=== PATIENT | female | born 1960 | race Caucasian/White ===

== ENCOUNTER 2016-07-01 11:44 | Emergency (ER) | payer OTHER ==
[~2016-07-01] VITALS: Ht 162.6 cm; Wt 83.0 kg
[~2016-07-01 11:44] MED LIST: DEPA250T2 PO; FIORIC PO; FLUO20TA20 PO; FLUO40CA PO; LORA-392 PO; OMEP20CA5 PO; TRAM50TA PO
[2016-07-01 11:46] VITALS: BP 147/79; PULSE 105; RESP 17; TEMP 98.2; O2SAT 100
[2016-07-01] MEDS ORDERED: ONDANSETRON HCL 4 MG/2 ML VIAL IVP ONE (12:00)
[2016-07-01] MEDS ORDERED: SODIUM CHLORIDE 0.9% FLUSH 10 ML FLUSH IV FLUSH PRN (12:00)
[2016-07-01] MEDS ORDERED: SODIUM CHLOR 0.9% 1000 ML INJ 1,000 ML IV SCH (12:00)
[2016-07-01] MEDS ORDERED: MORPHINE SULFATE 4 MG/ML INJ IV PUSH ONE ×2 (12:00→15:15)
[2016-07-01 12:05] VITALS: BP 133/80; PULSE 88; RESP 18; O2SAT 99
--- NOTE | 2016-07-01 12:06 | PD ---
HPI Chief Complaint: Flank/Kidney Pain Time Seen by Provider: 11:52 Travel History International Travel<30 days: No Contact w/Intl Traveler<30days: No Traveled to known affect area: No History of Present Illness HPI The patient is a 55-year-old female who presents emergency department for right flank and right low back pain. The patient fell approximately 2 weeks ago after she tripped over her garden hose, falling backwards, landing on the lawn, and landing on her buttocks. Patient complains of pain located mid aspect of her low back that radiates into the left groin, left flank, down the left leg. The pain is worse with movement, but still present at rest. The intensity is intermittent, worse with movement, slightly alleviated at rest, and described as "sharp". The patient denies any dysuria, frequency, urgency, or hematuria. She does know she is currently perimenopausal, is had some intermittent spotting over the last week. The patient denies any associated nausea, vomiting, diarrhea, or change in bowel habits. She denies any urinary or fecal incontinence. The patient called her physician's office earlier today , Dr. Pedraza, who referred her to the emergency department. PFSH Past Medical History Arthritis: Yes (LOW BACK KNEES HANDS) Depression: Yes Cardiovascular Problems: No Diminished Hearing: No Gastrointestinal Disorders: Yes Genitourinary: No Musculoskeletal: Yes Neurologic: Yes Respiratory: Yes Migraines: Yes ?: Not Menopausal: Yes Tubal Ligation: Yes Past Surgical History Section: Yes (3) Gynecologic Surgery: Yes (C SECTION X 3) Tonsillectomy: Yes Other Surgery: Yes (LUMPECTOMY LEFT BREAST) Social History Alcohol Use: Yes (occ) Tobacco Use: Yes (lightly) Substance Use: No Allergies-Medications (Allergen,Severity, Reaction): Coded Allergies: No Known Allergies (Unverified , 07/01/16) Reported Meds & Prescriptions Reported Meds & Active Scripts Active Tramadol (Tramadol HCl) 50 Mg Tab 50 Mg PO Q6H PRN Prilosec 20 mg (Omeprazole) 20 Mg Capcr 20 Mg PO DAILY Ativan (Lorazepam) 0.5 Mg Tab 0.5 Mg PO Q6H Fluoxetine Hcl (Fluoxetine HCl) 20MG Cap 20 Mg PO DAILY Fluoxetine (Fluoxetine HCl) 40 Mg Cap 40 Mg PO DAILY Fioricet Tab (Acetaminophen/Butalbital/Caffeine) 1 Tab Tab 1 Tab PO Q8H PRN Depakote 250 mg (Divalproex Sodium) 250 Mg Tab 1 Tab PO DAILY Reported Omeprazole 20 Mg Tab 20 Mg PO DAILY Effexor (Venlafaxine HCl) 75 Mg Tab 75 Mg PO DAILY Review of Systems Except as stated in HPI: all other systems reviewed are Neg General / Constitutional: No: Fever Cardiovascular: No: Chest Pain or Discomfort Respiratory: No: Shortness of Breath Gastrointestinal: No: Nausea, Vomiting, Abdominal Pain Genitourinary: Positive: Vaginal Bleeding (spotting), No: Dysuria, Hematuria, Incontinence Musculoskeletal: Positive: Pain Neurologic: No: Paresthesia, Sensory Disturbance Physical Exam Narrative GENERAL: Awake, alert, pleasant 55-year-old female who appears her stated age and is in no acute respiratory distress. SKIN: Focused skin assessment warm/dry. HEAD: Atraumatic. Normocephalic. EYES: Pupils equal and round. No scleral icterus. No injection or drainage. ENT: No nasal bleeding or discharge. Upper dentures in place. NECK: Trachea midline. No JVD. CARDIOVASCULAR: Regular rate and rhythm. No murmur appreciated. RESPIRATORY: No accessory muscle use. Clear to auscultation. Breath sounds equal bilaterally. GASTROINTESTINAL: Abdomen soft, mild tenderness left upper quadrant and left flank. No visible ecchymosis. Minimal tenderness left lower quadrant. Back: No midline tenderness. Tenderness of the left sacroiliac in the left paravertebral muscles. MUSCULOSKELETAL: No obvious deformities. No clubbing. No cyanosis. No edema. Full range of motion of lower extremities. NEUROLOGICAL: Awake and alert. No obvious cranial nerve deficits. Motor grossly within normal limits. Normal speech. Nonfocal. Oriented 4. Follows commands without difficulty. PSYCHIATRIC: Appropriate mood and affect; insight and judgment normal. Data Data Last Documented VS Vital Signs Date Time Temp Pulse Resp B/P Pulse Ox O2 Delivery O2 Flow Rate FiO2 07/01/16 12:48 18 07/01/16 12:05 88 133/80 99 Room Air 07/01/16 11:46 98.2 Orders Complete Blood Count With Diff (07/01/16 12:00) Comprehensive Metabolic Panel (07/01/16 12:00) Lipase (07/01/16 12:00) Lactic Acid (07/01/16 12:00) Urinalysis - C+S If Indicated (07/01/16 12:00) Ct Abd/Pel W Iv Contrast(Rout) (07/01/16 12:00) Iv Access Insert/Monitor (07/01/16 12:00) Ecg Monitoring (07/01/16 12:00) Oximetry (07/01/16 12:00) Morphine Inj (Morphine Inj) (07/01/16 12:00) Ondansetron Inj (Zofran Inj) (07/01/16 12:00) Sodium Chlor 0.9% 1000 Ml Inj (Ns 1000 M (07/01/16 12:00) Sodium Chloride 0.9% Flush (Ns Flush) (07/01/16 12:00) Iohexol 350 Inj (Omnipaque 350 Inj) (07/01/16 14:38) Labs Laboratory Tests Test 07/01/16 07/01/16 12:05 12:10 Urine Color LIGHT-YELLOW Urine Turbidity CLEAR Urine pH 7.0 Urine Specific Truman 1.006 Urine Protein NEG mg/dL Urine Glucose (UA) NEG mg/dL Urine Ketones NEG mg/dL Urine Occult Blood NEG Urine Nitrite NEG Urine Bilirubin NEG Urine Urobilinogen LESS THAN 2.0 MG/DL Urine Leukocyte Esterase NEG Urine RBC LESS THAN 1 /hpf Urine WBC LESS THAN 1 /hpf Urine Squamous Epithelial 1 /hpf Cells Microscopic Urinalysis Comment CULT NOT INDICATED White Blood Count 7.2 TH/MM3 Red Blood Count 4.31 MIL/MM3 Hemoglobin 13.4 GM/DL Hematocrit 40.6 % Mean Corpuscular Volume 94.1 FL Mean Corpuscular Hemoglobin 31.0 PG Mean Corpuscular Hemoglobin 32.9 % Concent Red Cell Distribution Width 13.4 % Platelet Count 211 TH/MM3 Mean Platelet Volume 8.1 FL Neutrophils (%) (Auto) 69.7 % Lymphocytes (%) (Auto) 18.4 % Monocytes (%) (Auto) 7.6 % Eosinophils (%) (Auto) 3.7 % Basophils (%) (Auto) 0.6 % Neutrophils # (Auto) 5.0 TH/MM3 Lymphocytes # (Auto) 1.3 TH/MM3 Monocytes # (Auto) 0.5 TH/MM3 Eosinophils # (Auto) 0.3 TH/MM3 Basophils # (Auto) 0.0 TH/MM3 CBC Comment DIFF FINAL Differential Comment Sodium Level 137 MEQ/L Potassium Level 4.7 MEQ/L Chloride Level 103 MEQ/L Carbon Dioxide Level 29.2 MEQ/L Anion Gap 5 MEQ/L Blood Urea Nitrogen 10 MG/DL Creatinine 0.77 MG/DL Estimat Glomerular Filtration 78 ML/MIN Rate Random Glucose 101 MG/DL Lactic Acid Level 1.5 mmol/L Calcium Level 8.9 MG/DL Total Bilirubin 0.4 MG/DL Aspartate Amino Transf 35 U/L (AST/SGOT) Alanine Aminotransferase 20 U/L (ALT/SGPT) Alkaline Phosphatase 90 U/L Total Protein 7.3 GM/DL Albumin 4.0 GM/DL Lipase 170 U/L [facility] Medical Decision Making Medical Screen Exam Complete: Yes Emergency Medical Condition: Yes Medical Record Reviewed: Yes Interpretation(s) CT the abdomen and pelvis reveals hepatic cyst. There is no evidence for acute medical injury. 2.8 cm low density splenic mass probably cystic that appears chronic. Laboratory Tests Test 07/01/16 07/01/16 12:05 12:10 Urine Color LIGHT-YELLOW Urine Turbidity CLEAR Urine pH 7.0 Urine Specific Truman 1.006 Urine Protein NEG mg/dL Urine Glucose (UA) NEG mg/dL Urine Ketones NEG mg/dL Urine Occult Blood NEG Urine Nitrite NEG Urine Bilirubin NEG Urine Urobilinogen LESS THAN 2.0 MG/DL Urine Leukocyte Esterase NEG Urine RBC LESS THAN 1 /hpf Urine WBC LESS THAN 1 /hpf Urine Squamous Epithelial 1 /hpf Cells Microscopic Urinalysis Comment CULT NOT INDICATED White Blood Count 7.2 TH/MM3 Red Blood Count 4.31 MIL/MM3 Hemoglobin 13.4 GM/DL Hematocrit 40.6 % Mean Corpuscular Volume 94.1 FL Mean Corpuscular Hemoglobin 31.0 PG Mean Corpuscular Hemoglobin 32.9 % Concent Red Cell Distribution Width 13.4 % Platelet Count 211 TH/MM3 Mean Platelet Volume 8.1 FL Neutrophils (%) (Auto) 69.7 % Lymphocytes (%) (Auto) 18.4 % Monocytes (%) (Auto) 7.6 % Eosinophils (%) (Auto) 3.7 % Basophils (%) (Auto) 0.6 % Neutrophils # (Auto) 5.0 TH/MM3 Lymphocytes # (Auto) 1.3 TH/MM3 Monocytes # (Auto) 0.5 TH/MM3 Eosinophils # (Auto) 0.3 TH/MM3 Basophils # (Auto) 0.0 TH/MM3 CBC Comment DIFF FINAL Differential Comment Sodium Level 137 MEQ/L Potassium Level 4.7 MEQ/L Chloride Level 103 MEQ/L Carbon Dioxide Level 29.2 MEQ/L Anion Gap 5 MEQ/L Blood Urea Nitrogen 10 MG/DL Creatinine 0.77 MG/DL Estimat Glomerular Filtration 78 ML/MIN Rate Random Glucose 101 MG/DL Lactic Acid Level 1.5 mmol/L Calcium Level 8.9 MG/DL Total Bilirubin 0.4 MG/DL Aspartate Amino Transf 35 U/L (AST/SGOT) Alanine Aminotransferase 20 U/L (ALT/SGPT) Alkaline Phosphatase 90 U/L Total Protein 7.3 GM/DL Albumin 4.0 GM/DL Lipase 170 U/L Differential Diagnosis Differential diagnosis includes back strain, splenic hematoma, intra-abdominal injury, nephrolithiasis, pyelonephritis, UTI, sciatica, back pain with radiculopathy. Narrative Course IV was established, labs are drawn and sent, and the patient was placed on cardiac telemetry monitoring and continuous pulse oximetry monitoring. The patient was administered morphine, Zofran, and IV fluids. CT of the abdomen and pelvis with IV contrast was ordered to evaluate for possible intra- abdominal injury and/or splenic hematoma. UA was sent to lab. Labs are unremarkable. UA is negative for hematuria. Creatinine and hemoglobin are normal. CT of the abdomen and pelvis reveals a hepatic and splenic cyst, no acute findings. The patient was reevaluated at 3 PM, still has moderate pain, therefore, was administered another dose of pain medications. The patient will be discharged home a copy of her CT results and lab results, she is advised to follow-up with her primary physician. Diagnosis Primary Impression: Back pain Qualified Code: M54.42 - Acute left-sided low back pain with left-sided sciatica Additional Impression: Flank pain Patient Instructions: General Instructions Additional Instructions: Medications as directed. Follow-up with your primary physician. Please provide the patient a copy of her CT results and lab results at discharge. Return if symptoms worsen or progress. Med/Other Pt SpecificInfo: Prescription(s) given Scripts Hydrocodone-Acetaminophen ([place])5-325 mg Tab1 Tab PO Q6H PRN (PAIN) #12 TAB Ref 0 Prov:Anirudh Stallings MD 07/01/16 Orphenadrine ER 12 HR (Orphenadrine CR)100 Mg [id number] Mg PO Q12HR #20 TAB Ref 0 Prov:Anirudh Stallings MD 07/01/16 Ibuprofen 400 Mg [id number] Mg PO Q6H PRN (PAIN SCALE 1 TO 10) #20 TAB Ref 0 Prov:Anirudh Stallings MD 07/01/16 Disposition: 01 DISCHARGE HOME Condition: Stable Anirudh Stallings MD July 01, 2016 12:05
[2016-07-01] MEDS ORDERED: OMEP20TA PO (12:10)
[2016-07-01] MEDS ORDERED: VENL75TA PO (12:10)
[2016-07-01 12:45] LABS: BASOPHIL % 0.6 % (0.0-2.0); EOSINOPHIL # 0.3 TH/MM3 (0-0.4); EOSINOPHIL % 3.7 % (0.0-4.0); HEMATOCRIT 40.6 % (35.0-46.0); HEMO FLAGS DIFF FINAL; LYMPH % 18.4 % (9.0-44.0); LYMPHOCYTE # 1.3 TH/MM3 (1.0-4.8); MEAN CELL VOLUME 94.1 FL (80.0-100.0); MEAN CORPUSCULAR HGB CONC 32.9 % (32.0-36.0); MONO % 7.6 % (0.0-8.0); NEUT % 69.7 % (16.0-70.0); PLATELET COUNT 211 TH/MM3 (150-450); RED BLOOD COUNT 4.31 MIL/MM3 (4.00-5.30); RED CELL DISTRIBUTION WIDTH 13.4 % (11.6-17.2); WHITE BLOOD COUNT 7.2 TH/MM3 (4.0-11.0)
[2016-07-01 12:50] LABS: BLOOD, URINE NEG (NEG); COMMENT (UR) CULT NOT INDICATED; CULTURE IF INDICATED CULT NOT INDICATED; GLUCOSE,URINE NEG (NEG); KETONE, URINE NEG (NEG); NITRITE,URINE NEG (NEG); SQUAMOUS EPITHELIAL CELL URINE 1 /hpf (0-5); URINE COLOR LIGHT-YELLOW (YELLW/STRAW)
[2016-07-01 13:08] LABS: ALKALINE PHOSPHATASE 90 U/L (45-117); TOTAL BILIRUBIN ADULT 0.4 MG/DL (0.2-1.0)
[2016-07-01 13:17] LABS: ALT (GPT) 20 U/L (10-53); ANION GAP 5 MEQ/L (5-15); AST (GOT) 35 U/L (15-37); BICARBONATE 29.2 MEQ/L (21.0-32.0); BLOOD UREA NITROGEN 10 MG/DL (7-18); CHLORIDE 103 MEQ/L (98-107); GLOMERULAR FILTRATION RATE 78 ML/MIN (>89); SODIUM (NA) 137 MEQ/L (136-145)
[2016-07-01 13:23] LABS: POTASSIUM 4.7 MEQ/L (3.5-5.1)
[2016-07-01] MEDS ORDERED: IOHEXOL 350 MG/ML 10 ML VIAL (for RAD DIAG) IV ONE (14:38)
--- NOTE | 2016-07-01 14:55 | RADRPT ---
EXAM DATE/TIME: 07/01/2016 13:50 [facility] COMPARISON: No previous studies available for comparison. INDICATIONS : Left flank pain for about two weeks,patient siad she did fall in the the yard about that time. IV CONTRAST: 69 cc Omnipaque 350 (iohexol) IV ORAL CONTRAST: No oral contrast ingested. RADIATION DOSE: 9.96 CTDIvol (mGy) MEDICAL HISTORY : None SURGICAL HISTORY : Tubal ligation. section.lumpectomy ENCOUNTER: Initial ACUITY: 2 weeks PAIN SCALE: 9/10 LOCATION: Left flank Abdomen TECHNIQUE: Volumetric scanning of the abdomen and pelvis was performed. Using automated exposure control and ad justment of the mA and/or kV according to patient size, radiation dose was kept as low as reasonably achievable to obtain optimal diagnostic quality images. FINDINGS: The lung bases is are clear. Moderate LAD calcifications are noted. There is a well circumscribed low density lesion in the liver measuring 2 cm, probably cyst. The spleen contains very small hilar cystic mass as well measuring 2.8 cm. The pancreas is unremarkable The right adrenal is normal There is a 2.2 cm low-density left adrenal mass thought to be an adenoma. Cortical irregularities are seen in both kidneys. There is no evidence for stone or obstruction. In the pelvis there is fibroid uterus evident. There is no ascites or adenopathy. The abdominal wal l is intact. There are no inflammatory changes are evident. Review of bone windows reveals only degenerative changes. CONCLUSION: Hepatic cyst. There is no evidence for acute traumatic injury. 2.8 cm low-density splenic mass prob ably cystic that appears chronic. Jesus Cruz MD FACR on July 01, 2016 at 14:49 Board Certified Radiologist. This report was verified electronically.
[2016-07-01] MEDS ORDERED: ORPH100T99 PO (15:02)
[2016-07-01] MEDS ORDERED: IBUP400T20 PO (15:02)
[2016-07-01] MEDS ORDERED: NORC5TAB PO (15:02)
[2016-07-01] MEDS ORDERED: KETOROLAC TROMETHAMINE 30 MG/ML (IVP) VIAL IV PUSH ONE (15:15)
[2016-07-01 15:56] VITALS: RESP 18
[2016-07-01 15:57] VITALS: BP 132/74
== END 2016-07-01 16:00 | disposition home or self-care (01) ==
LOC: NEPE 11:44
DX: M54.5 Low back pain (principal); R10.31 Right lower quadrant pain; W18.09XA Striking against other object with subsequent fall, initial encounter; Y93.9 Activity, unspecified; Y92.007 Garden or yard of unspecified non-institutional (private) residence as the place of occurrence of the external cause; Y99.8 Other external cause status
CPT/HCPCS: 74177; 80053; 81001; 83605; 83690; 85025; 96361; 96374; 96375; 96376; 99284; J1885; J2270; J2405; J7030; Q9967

== ENCOUNTER → 2016-09-04 | Outpatient (CLI) | payer OTHER ==
[~2016-09-04] VITALS: Ht 167.6 cm; Wt 77.1 kg
[~2016-09-04] MED LIST changes: +CHLORHEXIDINE GLUCONATE 2 % 1 PACK (2 CLOTHS) TOPICAL PRN; +IBUP400T20 PO; +INSULIN HUMAN REGULAR 1,000 UNITS/10 ML VIAL SQ PRN; +LACTATED RINGER'S 1000 ML IV PRN; +METOPROLOL TARTRATE 25 MG TAB PO PRN; +NORC5TAB PO; +OMEP20TA PO; +ORPH100T99 PO; +POVIDONE IODINE 5% (ANTISEPSIS KIT) 4 APPLICATIONS EACH NARE PRN; +PROPOFOL 200 MG/20 ML AMP IV ONE; +SODIUM CHLORID 0.9% 500 ML IV PRN; +VENL75TA PO
[2016-09-04 11:37] VITALS: BP 128/69; PULSE 82; RESP 18; TEMP 99; O2SAT 98
--- NOTE | 2016-09-04 13:22 | GIPROC ---
[facility] [address] [facility]. [facility], [id number] EGD PROCEDURE REPORT EXAM DATE: 09/04/2016 PATIENT NAME: Shyla Cheng MR #: [id number] BIRTHDATE: 1960 ATTENDING: Ron Sandoval MD ORDER #: [id number] FITTER PLACER: Dexter Macedo and Lisbeth Villegas STATUS: outpatient INDICATIONS: The patient is a 55 yr old female here for an EGD due to chronic gastroesophageal relux; heartburn is controlled with omeprazole. Dysphagia for solids 2-3 times/month with hesitation in the upper retrosternal region. PROCEDURE PERFORMED: EGD with guidewire insetion and esophageal dilation. MEDICATIONS: Per Anesthesia. TOPICAL ANESTHETIC: None CONSENT: The patient understands the risks and benefits of the procedure and understands that these risks include, but are not limited to: sedation, allergic reaction, infection, perforation and/or bleeding. Alternative means of evaluation and treatment include, among others: physical exam, x-rays, and/or surgical intervention. The patient elects to proceed with this endoscopic procedure. medical equipment was checked for proper function. Hand hygiene and appropriate measures for infection prevention was taken. After the risks, benefits and alternatives of the procedure were thoroughly explained, Informed consent was verified, confirmed and timeout was successfully executed by the treatment team. The patient was anesthetized with topical anesthesia and the Pentax [id number] endoscope was introduced through the mouth and advanced to the second portion of the duodenum . Retroflexion was performed The gastroscope was then slowly withdrawn and removed. No mucosal abnormalities were noted. Over a guidewire a 17mm Savary dilator was passed with no to minimal resistance met. Next, an 18mm dilator was passed with moderate resistance met in the proximal esophagus, consistent with an esophageal motor disorder. ADVERSE EVENTS: There were no complications. IMPRESSIONS: NL EGD; esophagus dilated to 18mm. Findings consistent with and esophageal motor disorder. RECOMMENDATIONS: Resume anti-reflux regimen and omeprazole. Avoid cold fluid/foods and drink warm liquid, especially before and with pills and meaks. PATIENT CONDITION: stable DISPOSITION: May resume prior diet/medication. REPEAT EXAM: Repeat EGD with dilation as symptoms require. Ron Sandoval MD eSigned: Ron Sandoval MD 09/04/2016 1:22 PM cc: Chirag Pedraza M.D.
--- NOTE | 2016-09-04 13:28 | GIPROC ---
[facility] [address] [facility]. [facility], [id number] COLONOSCOPY PROCEDURE REPORT EXAM DATE: 09/04/2016 PATIENT NAME: Shyla Cheng MR #: [id number] BIRTHDATE: 1960 ENDOSCOPIST: Ron Sandoval MD ORDER #: [id number] ASSEMBLY RIVETER: Dexter Macedo and Lisbeth Villegas STATUS: outpatient INDICATIONS: The patient is a 55 yr old female here for a colonoscopy due to history of colon polyps; only hyperplastic polyps were found at colonoscopy August,. She's been on a two-year protocol for colonoscopy and isn't sure why. No first degree relatives with colorectal neoplasia. PROCEDURE PERFORMED: Colonoscopy with cold snare polypectomy MEDICATIONS: Per Anesthesia. PREP QUALITY: good ESTIMATED BLOOD LOSS: None CONSENT: The patient understands the risks and benefits of the procedure and understands that these risks include, but are not limited to: sedation, allergic reaction, infection, perforation and/or bleeding. Alternative means of evaluation and treatment include, among others: physical exam, x-rays, and/or surgical intervention. The patient elects to proceed with this endoscopic procedure. medical equipment was checked for proper function. Hand hygiene and appropriate measures for infection prevention was taken. After the risks, benefits and alternatives of the procedure were thoroughly explained, Informed consent was verified, confirmed and timeout was successfully executed by the treatment team. A digital exam was performed The Pentax [id number] endoscope was introduced through the anus and advanced to the cecum, which was identified by both the appendix and ileocecal valve. The instrument was then slowly withdrawn as the colon was fully examined. A single 5mm hyperplastic-appearing polyp was remove with cold snare polypectomy from the rectum Retroflexion was performed The scope was then completely withdrawn from the patient and the procedure terminated. ADVERSE EVENTS: There were no complications. IMPRESSIONS: Single rectal polyp; removed with cold snare polypectomy RECOMMENDATIONS: Repeat colonoscopy in 5 years depending on pathology report. RECALL: Ron Sandoval MD eSigned: Ron Sandoval MD 09/04/2016 1:28 PM cc: Chirag Pedraza M.D.
[2016-09-04 13:38] VITALS: BP 112/63; PULSE 77; RESP 18; O2SAT 100
--- NOTE | 2016-09-04 16:16 | EKG ---
Date Performed: 09/04/2016 Time Performed: 11:27:21 PTAGE: 55 years EKG: Sinus rhythm INCOMPLETE RIGHT BUNDLE BRANCH BLOCK BORDERLINE ECG PREVIOUS TRACING : 04/26/2014 12.09 Compared to prior tracing no significant change DOCTOR: Kathie Hernandez Interpretating Date/Time 09/04/2016 16:15:39
== END ==
LOC: HEND 10:52
DX: Z12.11 Encounter for screening for malignant neoplasm of colon (principal); Z86.010 Personal history of colon polyps; K62.1 Rectal polyp; K21.9 Gastro-esophageal reflux disease without esophagitis; R12 Heartburn; R13.10 Dysphagia, unspecified; K22.4 Dyskinesia of esophagus; I45.10 Unspecified right bundle-branch block
CPT/HCPCS: 00740; 00810; 43248; 45385; 88305; 93005; C1769

== ENCOUNTER 2016-09-23 20:22 | Emergency (ER) | payer OTHER ==
[~2016-09-23 20:22] MED LIST changes: -CHLORHEXIDINE GLUCONATE 2 % 1 PACK (2 CLOTHS) TOPICAL PRN; -DEPA250T2 PO; -FIORIC PO; -FLUO20TA20 PO; -FLUO40CA PO; -INSULIN HUMAN REGULAR 1,000 UNITS/10 ML VIAL SQ PRN; -LACTATED RINGER'S 1000 ML IV PRN; -LORA-392 PO; -METOPROLOL TARTRATE 25 MG TAB PO PRN; -OMEP20CA5 PO; -ORPH100T99 PO; -POVIDONE IODINE 5% (ANTISEPSIS KIT) 4 APPLICATIONS EACH NARE PRN; -PROPOFOL 200 MG/20 ML AMP IV ONE; -SODIUM CHLORID 0.9% 500 ML IV PRN
[2016-09-23 20:25] VITALS: BP 153/81; PULSE 98; RESP 16; TEMP 98.4; O2SAT 97
--- NOTE | 2016-09-23 23:59 | PD ---
HPI Chief Complaint: Headache Time Seen by Provider: 23:02 Travel History International Travel<30 days: No Contact w/Intl Traveler<30days: No Traveled to known affect area: No History of Present Illness HPI The patient is a 55 year old female who presents to the [facility] emergency department with a history of a headache that began a few days ago. The patient reports that she does have a history of migraine headaches, however this headache is different. She reports that she believes that it is related to her cholesteatoma. 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 She is following with an ear, nose, and throat specialist in [place] as this is the closest one and takes her insurance. His name is . She reports that she has lost her hearing in her right ear 5 years ago related to this, however she was not officially diagnosed until May 2016. The patient also suffers with chronic mastoiditis and she reports that the title search manager plans to do a resection of her mastoid. She reports that the headache is located behind her right ear and on the right side of her head. She reports that this morning she did have some bloody drainage from both ears, worse on the right compared to the left. She also reports having chronic clear rhinorrhea. She reports having sinus pressure over her right frontal and maxillary sinus. She has a loss of energy. She reports that she is scheduled for surgery on 10/11. She denies being prescribed any pain medications. She reports that she has tried taking BC powders, Ibuprofen, and tylenol however they have not helped. On review of systems, the patient denies any recent fevers, cough, neck pain, chest pain, shortness of breath, abdominal pain, vomiting, diarrhea, urinary symptoms, or neurologic symptoms. She does report having nausea. COUNT INCLUDES THE [facility] Past Medical History Narrative Medical The patient's past medical history is significant for arthritis involving her low back, knees, hands, history of depression, history of migraine headaches, history of acid reflux, uterine fibroids. Arthritis: Yes (LOW BACK KNEES HANDS) Depression: Yes Cardiovascular Problems: No Diminished Hearing: No Gastrointestinal Disorders: Yes Genitourinary: No Musculoskeletal: Yes Neurologic: Yes Respiratory: Yes Migraines: Yes Tetanus Vaccination: Unknown Influenza Vaccination: Yes ?: Not Menopausal: Yes Tubal Ligation: Yes Past Surgical History Narrative Surgical The patient's past surgical history is significant for C-sections 3, history of a left breast lumpectomy, tonsillectomy, lump removed from left neck. Section: Yes (3) Gynecologic Surgery: Yes (C SECTION X 3) Tonsillectomy: Yes Other Surgery: Yes (LUMPECTOMY LEFT BREAST) Social History Alcohol Use: Yes (occ) Tobacco Use: Yes (5 cigs per day.) Substance Use: No Allergies-Medications (Allergen,Severity, Reaction): Coded Allergies: No Known Allergies (Unverified , 09/23/16) Reported Meds & Prescriptions Reported Meds & Active Scripts Active [place] (Hydrocodone-Acetaminophen) 5-325 mg Tab 1 Tab PO Q6H PRN Ibuprofen 400 Mg Tab 400 Mg PO Q6H PRN Tramadol (Tramadol HCl) 50 Mg Tab 50 Mg PO Q6H PRN Reported Omeprazole 20 Mg Tab 20 Mg PO DAILY Effexor (Venlafaxine HCl) 75 Mg Tab 75 Mg PO DAILY Review of Systems Except as stated in HPI: all other systems reviewed are Neg General / Constitutional: No: Fever Eyes: No: Visual changes HENT: Positive: Headaches, Rhinorrhea (clear), Ear Discharge, No: Neck Pain Cardiovascular: No: Chest Pain or Discomfort Respiratory: No: Shortness of Breath Gastrointestinal: Positive: Nausea, No: Vomiting, Diarrhea, Abdominal Pain Genitourinary: No: Dysuria Musculoskeletal: No: Pain Skin: No Rash Neurologic: Positive: Headache, No: Weakness, Focal Abnormalities, Change in Mentation, Slurred Speech, Sensory Disturbance Psychiatric: No: Depression Endocrine: No: Polydipsia Hematologic/Lymphatic: No: Easy Bruising Physical Exam Narrative General: The patient is a well-developed 3female in no acute distress. Head and Neck exam: Head is normocephalic atraumatic. Eyes: EOMI, pupils are equal round and reactive to light. Nose: Midline septum with pink mucous membranes Ears: The patient's tympanic membrane on the right is hazy with a blunted cone of light. The patient has dried blood present in the external auditory canal. Patient's left hip and a membrane is pearly with a scratch noted in the external auditory canal. Sinuses: The patient has right frontal and right maxillary sinus tenderness on palpation. Mouth: Dentition unremarkable. Moist mucus membranes. Posterior oropharynx is not erythematous. No tonsillar hypertrophy. Uvula midline. Airway patent. Neck: No palpable lymphadenopathy. No nuchal rigidity. No thyromegaly. Cardiovascular: Regular rate and rhythm without murmurs, gallops, or rubs. Lungs: Clear to auscultation bilaterally. No wheezes, rhonchi, or rales. Abdomen: Soft, without tenderness to palpation in all 4 quadrants of the abdomen. No guarding, rebound, or rigidity. Normal bowel sounds are audible. No tenderness on palpation of McBurney's point. Extremities: No clubbing, cyanosis, or edema. 2+ pulses in all 4 extremities. No calf tenderness on palpation. Back: No costovertebral angle tenderness to palpation. Neurologic Exam: Cranial nerves 2-12 were intact on exam. Strength is 5/5 in all 4 extremities. No sensory deficits noted. Skin Exam: No rash noted. Intact skin that is warm and dry. Data Data Last Documented VS Vital Signs Date Time Temp Pulse Resp B/P Pulse Ox O2 Delivery O2 Flow Rate FiO2 09/24/16 02:04 15 98 Room Air 09/23/16 22:58 79 09/23/16 20:25 98.4 153/81 Orders Complete Blood Count With Diff (09/23/16 23:40) Comprehensive Metabolic Panel (09/23/16 23:40) Urinalysis - C+S If Indicated (09/23/16 23:40) Westergren Sedimentation Rate (09/23/16 23:40) Valproic Acid (Depakene) (09/23/16 23:40) Ct Brain W/O Iv Contrast(Rout) (09/23/16 23:40) Iv Access Insert/Monitor (09/23/16 23:40) Ecg Monitoring (09/23/16 23:40) Oximetry (09/23/16 23:40) Sodium Chlor 0.9% 1000 Ml Inj (Ns 1000 M (09/24/16 00:30) Ketorolac Inj (Toradol Inj) (09/24/16 00:30) Prochlorperazine Inj (Compazine Inj) (09/24/16 00:30) Labs Laboratory Tests Test 09/23/16 09/24/16 23:00 01:00 White Blood Count 6.6 TH/MM3 Red Blood Count 4.19 MIL/MM3 Hemoglobin 13.6 GM/DL Hematocrit 38.9 % Mean Corpuscular Volume 92.9 FL Mean Corpuscular Hemoglobin 32.4 PG Mean Corpuscular Hemoglobin 34.9 % Concent Red Cell Distribution Width 13.5 % Platelet Count 236 TH/MM3 Mean Platelet Volume 8.5 FL Neutrophils (%) (Auto) 51.0 % Lymphocytes (%) (Auto) 35.1 % Monocytes (%) (Auto) 9.1 % Eosinophils (%) (Auto) 4.2 % Basophils (%) (Auto) 0.6 % Neutrophils # (Auto) 3.4 TH/MM3 Lymphocytes # (Auto) 2.3 TH/MM3 Monocytes # (Auto) 0.6 TH/MM3 Eosinophils # (Auto) 0.3 TH/MM3 Basophils # (Auto) 0.0 TH/MM3 CBC Comment DIFF FINAL Differential Comment Erythrocyte Sedimentation Rate 14 mm/hr Sodium Level 139 MEQ/L Potassium Level 3.7 MEQ/L Chloride Level 103 MEQ/L Carbon Dioxide Level 25.7 MEQ/L Anion Gap 10 MEQ/L Blood Urea Nitrogen 8 MG/DL Creatinine 0.62 MG/DL Estimat Glomerular Filtration 101 ML/MIN Rate Random Glucose 102 MG/DL Calcium Level 9.4 MG/DL Total Bilirubin 0.5 MG/DL Aspartate Amino Transf 16 U/L (AST/SGOT) Alanine Aminotransferase 18 U/L (ALT/SGPT) Alkaline Phosphatase 108 U/L Total Protein 7.6 GM/DL Albumin 4.4 GM/DL Valproic Acid (Depakene) Level LESS THAN 3 MCG/ML Urine Color YELLOW Urine Turbidity CLEAR Urine pH 6.5 Urine Specific Diana 1.009 Urine Protein NEG mg/dL Urine Glucose (UA) NEG mg/dL Urine Ketones NEG mg/dL Urine Occult Blood NEG Urine Nitrite NEG Urine Bilirubin NEG Urine Urobilinogen LESS THAN 2.0 MG/DL Urine Leukocyte Esterase NEG Urine RBC 1 /hpf Urine WBC 1 /hpf Urine Squamous Epithelial 1 /hpf Cells Microscopic Urinalysis Comment CULT NOT INDICATED MDM Medical Decision Making Medical Screen Exam Complete: Yes Emergency Medical Condition: Yes Medical Record Reviewed: Yes Interpretation(s) Last Impressions Head CT 09/23/16 6900 Signed Impressions: Service Date/Time: Friday, September 23, 2016 23:58 - CONCLUSION: 1. No acute hemorrhage, mass or infarction. 2. Stable opacification of the right mastoid air cells with mildly increased opacification left mastoid air cells compared to the 2015 exam. Findings are most consistent with chronic mastoiditis. Rachid Odell MD Differential Diagnosis Migraine headache, versus tension headache, versus cluster headache, versus sinus related headache, versus temporal arteritis, versus headache related to growth of cholesteatoma. Narrative Course During the course of the patients emergency department visit, the patients history, examination, and differential diagnosis were reviewed with the patient. The patient had IV access obtained and blood work sent for analysis. The patient's EMR was reviewed. The patient had a CT scan of the brain ordered. The patient was initially provided normal saline 1 L IV fluid bolus, Toradol 15 mg IV, Compazine 5 mg IV. The patients laboratory studies were reviewed and remarkable for a white count of 6.6, hemoglobin 13.6, platelets 236 with 9.1 monocytes, sedimentation rate is 14, CMP is within normal limits, urinalysis is within normal limits. Valproic acid is less than 3. Radiology studies were reviewed and remarkable for a CT scan of the brain that shows no acute hemorrhage, mass effect, or infarction, stable opacification of the right mastoid air cells with mild increased opacification left mastoid air cells compared to the 2015 exam, findings are most consistent with a chronic mastoiditis. The patient will be discharged home to follow-up with her operations support professionals. The patient was given a prescription for Lortab at discharge. The patient is resting comfortably and feels better, is alert and in no distress. The patients results and examination findings were discussed with the patient. The repeat examination is unremarkable and benign. The history, exam, diagnostic testing, and current condition do not suggest any significant pathology to warrant further testing, continued ED treatment, admission, or surgical evaluation at this point. The vital signs have been stable. The patient does not have uncontrollable pain, intractable vomiting, or other significant symptoms. The patient's condition is stable and appropriate for discharge. The patient will pursue further outpatient evaluation with a primary care physician or other designated or consulting physician as indicated in the discharge instructions. The patient expressed understanding and was agreeable with this plan. Diagnosis Primary Impression: Headache Qualified Code: R51 - Acute nonintractable headache, unspecified headache type Additional Impressions: Chronic mastoiditis Qualified Code: H70.13 - Chronic mastoiditis, bilateral Cholesteatoma of both ears Referrals: Ear / Nose / Throat Specialist Patient Instructions: General Headache (ED), General Instructions Med/Other Pt SpecificInfo: Prescription(s) given Scripts Promethazine (Phenergan)25 Mg [id number] Mg PO Q6H PRN (NAUSEA OR VOMITING) #7 TAB Ref 0 Prov:Lorrie Mclean MD 09/24/16 Hydrocodone-Acetaminophen (Lortab)5-325 Mg Tab1 Tab PO Q6H PRN (PAIN) #12 TAB Ref 0 Prov:Lorrie Mclean MD 09/24/16 Disposition: 01 DISCHARGE HOME Condition: Stable Lorrie Mclean MD Sep 23, 2016 23:59
--- NOTE | 2016-09-24 00:10 | RADRPT ---
EXAM DATE/TIME: 09/23/2016 23:58 [facility] COMPARISON: CT BRAIN W/O CONTRAST, April 26, 2014, 12:00. INDICATIONS : Cephalgia. RADIATION DOSE: 56.35 CTDIvol (mGy) MEDICAL HISTORY : None SURGICAL HISTORY : Tubal ligation. section.Colectomy. ENCOUNTER: Initial ACUITY: 3 days PAIN SCALE: 5/10 LOCATION: cranial TECHNIQUE: Multiple contiguous axial images were obtained of the head. Using automated exposure control and adj ustment of the mA and/or kV according to patient size, radiation dose was kept as low as reasonably a chievable to obtain optimal diagnostic quality images. DICOM format image data is available electro nically for review and comparison. FINDINGS: CEREBRUM: The ventricles are normal for age. No evidence of midline shift, mass lesion, hemorrhage or acute in farction. No extra-axial fluid collections are seen. POSTERIOR FOSSA: The cerebellum and brainstem are intact. The 4th ventricle is midline. The cerebellopontine angle i s unremarkable. EXTRACRANIAL: The visualized portion of the orbits is intact. There is stable opacification the right mastoid air c ells. There is increased opacification in the left mastoid air cells. SKULL: The calvaria is intact. No evidence of skull fracture. CONCLUSION: 1. No acute hemorrhage, mass or infarction. 2. Stable opacification of the right mastoid air cells with mildly increased opacification left masto id air cells compared to the 2015 exam. Findings are most consistent with chronic mastoiditis. Rachid Odell MD on September 24, 2016 at 0:06 Board Certified Radiologist. This report was verified electronically.
[2016-09-24 00:17] LABS: AUTOMATED NEUTROPHIL # 3.4 TH/MM3 (1.8-7.7); BASOPHIL % 0.6 % (0.0-2.0); EOSINOPHIL # 0.3 TH/MM3 (0-0.4); EOSINOPHIL % 4.2 % (0.0-4.0); HEMATOCRIT 38.9 % (35.0-46.0); HEMO FLAGS DIFF FINAL; LYMPH % 35.1 % (9.0-44.0); LYMPHOCYTE # 2.3 TH/MM3 (1.0-4.8); MEAN CELL VOLUME 92.9 FL (80.0-100.0); MEAN CORPUSCULAR HEMOGLOBIN 32.4 PG (27.0-34.0); MEAN CORPUSCULAR HGB CONC 34.9 % (32.0-36.0); MONO % 9.1 % (0.0-8.0); PLATELET COUNT 236 TH/MM3 (150-450); RED BLOOD COUNT 4.19 MIL/MM3 (4.00-5.30); RED CELL DISTRIBUTION WIDTH 13.5 % (11.6-17.2); WHITE BLOOD COUNT 6.6 TH/MM3 (4.0-11.0)
[2016-09-24] MEDS ORDERED: PROCHLORPERAZINE INJ 10 MG/2 ML VIAL IV PUSH ONE (00:30)
[2016-09-24] MEDS ORDERED: KETOROLAC TROMETHAMINE 30 MG/ML (IVP) VIAL IV PUSH ONE (00:30)
[2016-09-24] MEDS ORDERED: SODIUM CHLOR 0.9% 1000 ML INJ 1,000 ML IV ONE (00:30)
[2016-09-24 00:33] LABS: ANION GAP 10 MEQ/L (5-15); AST (GOT) 16 U/L (15-37); BICARBONATE 25.7 MEQ/L (21.0-32.0); BLOOD UREA NITROGEN 8 MG/DL (7-18); CHLORIDE 103 MEQ/L (98-107); GLOMERULAR FILTRATION RATE 101 ML/MIN (>89); POTASSIUM 3.7 MEQ/L (3.5-5.1); SODIUM (NA) 139 MEQ/L (136-145)
[2016-09-24 00:34] LABS: ALT (GPT) 18 U/L (10-53)
[2016-09-24 00:36] LABS: ALKALINE PHOSPHATASE 108 U/L (45-117); TOTAL BILIRUBIN ADULT 0.5 MG/DL (0.2-1.0)
[2016-09-24 01:14] LABS: BLOOD, URINE NEG (NEG); GLUCOSE,URINE NEG (NEG); KETONE, URINE NEG (NEG); NITRITE,URINE NEG (NEG); PH, URINE 6.5 (5.0-8.5); SQUAMOUS EPITHELIAL CELL URINE 1 /hpf (0-5); URINE COLOR YELLOW (YELLW/STRAW)
[2016-09-24 01:15] LABS: COMMENT (UR) CULT NOT INDICATED; CULTURE IF INDICATED CULT NOT INDICATED
[2016-09-24 02:04] VITALS: RESP 15; O2SAT 98
[2016-09-24] MEDS ORDERED: PROM25TA10 PO (02:14)
[2016-09-24] MEDS ORDERED: HYDR-3533 PO (02:14)
== END 2016-09-24 02:30 | disposition home or self-care (01) ==
LOC: NEPC 20:22
DX: R51 Headache (principal); H70.13 Chronic mastoiditis, bilateral
CPT/HCPCS: 70450; 80053; 80164; 81001; 85025; 85652; 96361; 96374; 96375; 99285; J0780; J1885; J7030

== ENCOUNTER 2017-03-23 19:40 | Emergency (ER) | payer OTHER ==
[~2017-03-23 19:40] MED LIST changes: +HYDR-3533 PO; +IBUP1TAB5 PO; -IBUP400T20 PO; -OMEP20TA PO; +OMEP20TA93 PO; +PROM25TA10 PO
[2017-03-23 19:41] VITALS: BP 186/97; PULSE 109; RESP 16; TEMP 99; O2SAT 98
--- NOTE | 2017-03-23 21:48 | PD ---
HPI Chief Complaint: Skin Problem Time Seen by Provider: 21:47 Travel History International Travel<30 days: No Contact w/Intl Traveler<30days: No Traveled to known affect area: No History of Present Illness HPI 56-year-old female patient with history of previous benign lump in the left breast, presents to the ER today because she states that she has noticed a lump in her left breast on Friday. She states it is mildly tender. She has not noticed it before. She denies any other issues. She had talked her primary care physician and was told to come to the ER for a evaluation or ultrasound of the left breast. Modifying Factors: None Associated Signs & Symptoms: Left breast lump Risk Factors: Previous benign left breast lump PFSH Past Medical History Arthritis: Yes (LOW BACK KNEES HANDS) Depression: Yes Cardiovascular Problems: No Diminished Hearing: No Gastrointestinal Disorders: Yes Genitourinary: No Musculoskeletal: Yes Neurologic: Yes Respiratory: Yes Migraines: Yes Menopausal: Yes Tubal Ligation: Yes Past Surgical History Section: Yes (3) Gynecologic Surgery: Yes (C SECTION X 3) Tonsillectomy: Yes Other Surgery: Yes (LUMPECTOMY LEFT BREAST) Social History Alcohol Use: Yes (occ) Tobacco Use: Yes (5 cigs per day.) Substance Use: No Allergies-Medications (Allergen,Severity, Reaction): Coded Allergies: No Known Allergies (Unverified Adverse Reaction, Unknown, 03/23/17) Reported Meds & Prescriptions Reported Meds & Active Scripts Active Phenergan (Promethazine HCl) 25 Mg Tablet 25 Mg PO Q6H PRN Ibuprofen 400 Mg Tab 400 Mg PO Q6H PRN Reported Omeprazole 20 Mg Tab 20 Mg PO DAILY Effexor (Venlafaxine HCl) 75 Mg Tab 75 Mg PO DAILY Review of Systems Except as stated in HPI: all other systems reviewed are Neg Physical Exam Narrative GENERAL: Well-developed middle age female patient currently in mild distress. Awake and oriented 3. SKIN: Focused skin assessment warm/dry. HEAD: Atraumatic. Normocephalic. EYES: Pupils equal and round. No scleral icterus. No injection or drainage. ENT: No nasal bleeding or discharge. Mucous membranes pink and moist. NECK: Trachea midline. No JVD. CARDIOVASCULAR: Regular rate and rhythm. No murmur appreciated. RESPIRATORY: No accessory muscle use. Clear to auscultation. Breath sounds equal bilaterally. Left breast: There is a palpable 2 cm mobile round lump next to the left nipple at the 2 o'clock position. No underlying fluctuance or erythema. Nontender to palpation. GASTROINTESTINAL: Abdomen soft, non-tender, nondistended. Hepatic and splenic margins not palpable. MUSCULOSKELETAL: No obvious deformities. No clubbing. No cyanosis. No edema. NEUROLOGICAL: Awake and alert. No obvious cranial nerve deficits. Motor grossly within normal limits. Normal speech. PSYCHIATRIC: Appropriate mood and affect; insight and judgment normal. Data Data Last Documented VS Vital Signs Date Time Temp Pulse Resp B/P (MAP) Pulse Ox O2 Delivery O2 Flow Rate FiO2 03/23/17 19:41 99.0 109 16 186/97 (126) 98 Room Air Orders Orders Us Breast Unilateral (03/23/17 ) [facility] Medical Decision Making Medical Screen Exam Complete: Yes Emergency Medical Condition: Yes Medical Record Reviewed: Yes Interpretation(s) Last 24 hours Impressions Breast Ultrasound 03/23/17 0000 Signed Impressions: Service Date/Time: Thursday, March 23, 2017 21:49 - CONCLUSION: The palpable of the left breast has ultrasound features of a benign cyst. Please see above. Clinical surveillance recommended. Outpatient mammographic evaluation of both breasts recommended if not done recently. Chirag Garcia MD Differential Diagnosis Left breast lump: Abscess versus tumor Narrative Course Ultrasound shows features of a benign cyst. There is no signs of this and abscess. At this point, patient will need to follow-up for mammogram on an outpatient basis with primary care doctor. Return for any worsening in symptoms , pain, and as needed. The plan has been discussed with her and she states understanding. Diagnosis Primary Impression: Breast mass, left Disposition: 01 DISCHARGE HOME Condition: Stable Chris Tolbert MD Mar 23, 2017 21:48
--- NOTE | 2017-03-23 22:16 | RADRPT ---
EXAM DATE/TIME: 03/23/2017 21:49 [facility] COMPARISON: No previous studies available for comparison. INDICATIONS : Palpable lump. MEDICAL HISTORY : Rheumatoid arthritis. Migraines. Depression. SURGICAL HISTORY : Tonsillectomy. section. Tubal ligation. Colectomy. ENCOUNTER: Initial ACUITY: 4-6 days PAIN SCORE: 6/10 LOCATION: Left breast. FINDINGS: Palpable corresponds to a circumscribed cyst measuring 21 x 21 x 16 mm at the 12: 00 subareolar region. There is a small amount of dependently layering debris within the cyst. No candis d component. The wall is thin. No vascularity demonstrated. CONCLUSION: The palpable of the left breast has ultrasound features of a benign cyst. Please see above. Clinical surveillance recommended. Outpatient mammographic evaluation of both breasts recommended if not done recently. Chirag Garcia MD on March 23, 2017 at 22:10 Board Certified Radiologist. This report was verified electronically.
== END 2017-03-23 23:42 | disposition home or self-care (01) ==
LOC: NEPE 19:40
DX: N63.20 Unspecified lump in the left breast, unspecified quadrant (principal); F32.9 Major depressive disorder, single episode, unspecified; F17.210 Nicotine dependence, cigarettes, uncomplicated
CPT/HCPCS: 76642; 99284